=== PATIENT | male | born 2005 | race Asian ===

== ENCOUNTER 2025-01-19 19:15 | Emergency (ER) | payer SELFPAY ==
[2025-01-19] MEDS ORDERED: Acetaminophen 500 MG TAB ONE (20:22)
[2025-01-19] MEDS ORDERED: Ibuprofen 200 MG TAB ONE (20:22)
== END 2025-01-19 22:14 | disposition home or self-care (01) ==
LOC: CSHERS 19:15
DX: S00.83XA Contusion of other part of head, initial encounter (principal); V18.2XXA Unspecified pedal cyclist injured in noncollision transport accident in nontraffic accident, initial encounter
CPT/HCPCS: 70450; 70486; 71250; 72125; 74177